=== PATIENT | female | born 1975 | race Two or more races ===

== ENCOUNTER 2024-10-19 10:20 | Day surgery (SDC) | payer MEDICAID, SELFPAY ==
[2024-10-18 15:25] VITALS: BMI 34.2
[2024-10-18 15:49] LABS: HCG Qualitative,Urine Negative
[2024-10-19] VITALS (10 sets, daily range): BP systolic 120–167; BP diastolic 77–109; PULSE 62–77; RESP 12–19; TEMP 36.7–36.8; O2SAT 94–100; BMI 34.0
[2024-10-19] MEDS: SODIUM CHLORIDE 0.9% 500 ML 500 ML 20 ML IV (12:05)
[2024-10-19] MEDS: ONDANSETRON INJ 2 MG/ML INJ 2 ML 4 MG IVP (12:10)
[2024-10-19] MEDS: fentaNYL CIT INJ 50 mCg/ML AMP 2ML (ASD USE ONLY) IVP (12:12)
[2024-10-19] MEDS: DiphenhydrAMINE INJ 50 MG/ML VIAL 25 MG IVP (12:12)
[2024-10-19] MEDS: MIDAZOLAM INJ 1 MG/ML VIAL 2 ML (ASD USE ONLY) 2 MG IVP (12:25)
[2024-10-19] MEDS: BENZOCAINE 20% (Hurricaine) SPRAY 1 DOSE TOP (12:26)
== END 2024-10-19 13:25 | disposition home or self-care (01) ==
PROVIDERS: Referring Provider Internal Medicine Gastroenterology; Visit Provider Internal Medicine Gastroenterology
PROC: (CPT 43239; principal; 2024-10-19 10:45)
DX: K29.70 Gastritis, unspecified, without bleeding (principal); K44.9 Diaphragmatic hernia without obstruction or gangrene; K31.7 Polyp of stomach and duodenum; Z98.890 Other specified postprocedural states; I10 Essential (primary) hypertension; K29.50 Unspecified chronic gastritis without bleeding; K63.89 Other specified diseases of intestine
CPT/HCPCS: 45385; 43239; 45380; 81025; J1200; J2250; J2405; J3010; J7040; A9270

== ENCOUNTER 2025-04-19 13:41 | Outpatient (AMB) | payer MEDICAID, SELFPAY ==
[2025-04-19 13:56] VITALS: BP 132/82; PULSE 86; RESP 16; TEMP 36.6; O2SAT 97; BMI 31.1
--- NOTE | 2025-04-19 13:56 | AMB.GYNCLNOT ---
Vital Signs 04/19/25 13:56 Height 1.63 m Height Method Stated Weight 82.214 kg Weight Measurement Method Standing Scale BMI 31.1 BP 132/82 H Blood Pressure Source Automatic Cuff Blood Pressure Location Left Upper Arm Position Sitting Respiration 16 Pulse 86 Pulse Source Monitor Temp 98 F Temp Source Oral Pulse Oximetry (%) 97 Oxygen Delivery Method Room Air Allergies/Home Meds Allergies & Medications Allergies No Known Allergies Allergy (Verified 04/19/25 13:57) Medication Reconciliation No Known Home Medications 10/18/24 [History Confirmed 04/19/25] Intake Visit Data Collection New Patient or Established: Established Patient (seen at [facility] within 3 years) Reason for Visit:: REFERRAL LEIOMYOMA Seen by Clinical Staff ONLY (RN/MA): No Montessori Lead Teacher Required: Yes Montessori Lead Teacher's name/title: NASIM MORLEY Do You Feel Safe at Home: Yes Authorities Contacted: N/A PCP or OBGYN visit in last 3 months: Yes Hx Now: No Are you currently on any form of Control: Yes Last menstrual period: 03/17/25 Pain Present Currently: No Pain Scale Used: Gordillo-Magdaleno/Numerical Pain scale:: 0 Smoking Status Smoking Status: Never smoker Immunizations Flu Vaccine in the Last 12 Months: Yes Flu Vaccine Exclusion Criteria: Already Received Patients Transporter history Patients Transporter History Menstrual regularity: regular Flow: heavy Monthly: Yes How many days does period last: 7 Age at menarche: 14 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 1. Little interest or pleasure in doing things: not at all 2. Feeling down, depressed, or hopeless: not at all Total score: 0 PHQ-9 3. Trouble falling or staying asleep, or sleeping too much: Not at all 4. Feeling tired or having little energy: Not at all 5. Poor appetite or overeating: Not at all 6. Feeling bad about yourself - or that you are a failure or have let yourself or your family down: Not at all 7. Trouble concentrating on things, such as reading the newspaper or watching television: Not at all 8. Moving or speaking so slowly that other people could have noticed? - Or the opposite - being so fidgety or restless that you have been moving around a lot more than usual: not at all 9. Thoughts that you would be better off or of hurting yourself in some way: Not at all Total score: 0 Source: Developed by Drs. Pawel Cabrera, Cris Horton, Rogelio Sutherland and colleagues, with an educational evelyn from [employer]. Depression screen completed yes Social History Living Situation History Marital Status: Lives With: Family Housing: House Tobacco History Smoking Status: Never smoker Second Hand Smoke Exposure: No Alcohol History Alcohol Intake: Never Domestic Abuse History Do You Feel Safe at Home: Yes History of Present Illness HPI Narrative Genoveva Morton is a 50-year-old female presenting on referral from [facility] for leiomyomas of the uterus. She has a very large leiomyoma that is filling her pelvis up to the umbilicus. The patient had been receiving monthly Depo Lupron shots as treatment, with her last injection in December. She inquired about why the treatment did not help her condition. She lives in [facility] and has [employer] insurance. The patient denies having high blood pressure or taking any other medications. Medications: - Monthly Depo Lupron shots - Last received in December. Have stopped. Social History: - Lives in [place] Exam Narrative Physical exam: - Abdomen: Very large palpable mass extending from pelvis to umbilicus consistent with leiomyoma. General General Appearance: alert, in no apparent distress and healthy appearing Head Head exam: atraumatic Neck Neck exam: Present normal inspection and trachea midline Chest Chest inspection: Present normal inspection and symmetric chest wall rise External exam: Present normal external exam; Absent tenderness Neuro Neurological exam: Present oriented X3 Psych Psychiatric exam: Present normal affect and normal mood Office Procedures [facility] Clinic LOC & Office Proc's Nursing/Assessment Patient Status: Established Patient OB Clinic Nursing Assessment: Medication Reconciliation, Update PMH in EMR and Vital Signs OB Clinic Coordination of Care: Complex Care and Chronic Disease 1-5, Consent,records obtained, informed consent, Education Simp Pt/Fam, 1 Ins Authorization, Lab and Imaging orders, Results/Orders obtained and Staff clarify orders Established Patient Charge Established Patient Point Assignment: 120 Established Patient Point Charge: EP Level 4 (120-155) Assessment & Plan Diagnosis / Problem List (1) Intramural leiomyoma of uterus: Status: Acute Plan Uterine leiomyomas Assessment: Patient has a very large uterine leiomyoma that fills her pelvis extending up to the umbilicus, palpable on examination. She previously received monthly Depo Lupron injections (last one in December) which provided only temporary benefit. The treatment was explained as temporary and not curative, used to provide time to prepare for surgery. Given the size and extent of the fibroid, surgical intervention is indicated. Plan: - Order pelvic ultrasound for insurance approval and to measure fibroid size - Schedule hysterectomy with fibroid removal, preserving ovaries - Surgical approach will require abdominal incision similar to due to fibroid size - Target surgery date late May or June pending insurance approval - If symptoms become severe before surgery, patient advised to go to emergency room for possible earlier admission and surgery - Will call patient with scheduling updates
== END 2025-04-19 14:10 | disposition home or self-care (01) ==
LOC: HODSOBC 13:41
PROVIDERS: Supervising Provider Obstetrics & Gynecology; Visit Provider Obstetrics & Gynecology
DX: D25.1 Intramural leiomyoma of uterus (principal)
CPT/HCPCS: 99214; G0463